=== PATIENT | female | born 1930 | race Caucasian/White ===

== ENCOUNTER 2018-08-17 10:10 | Inpatient (IN) | payer MEDICARE, MEDICAID ==
[~2018-08-17] VITALS: Ht 149.9 cm; Wt 62.1 kg
--- NOTE | 2018-08-17 10:23 | NUR ---
PATIENT TO ED HEADACHE AND HIGH BLOOD PRESSURE. PATIENT RECEIVED AWAKE, DENIES ANY PAIN, SKIN IS WARM TO TOUCH AND NON DIAPHORETIC. PATIENT IS AFEBRILE. VSS. PATIENT NOTED WITH LEFT EYE AND FACIAL DROOP,PER FAMILY BOTH STARTED 2 DAYS AGO. MD AWARE. GOWNED PT AND PLACED ON TELE MONITOR.
--- NOTE | 2018-08-17 10:45 | NUR ---
IV ACCESS STARTED. BLOOD DRAWN FOR LABS.
[2018-08-17] MEDS ORDERED: MECL-138 PO (10:48)
[2018-08-17] MEDS ORDERED: METF-440 PO (10:48)
[2018-08-17] MEDS ORDERED: ASPI-1152 PO (10:48)
[2018-08-17] MEDS ORDERED: RANI150T8 PO (10:48)
[2018-08-17] MEDS ORDERED: CALC500T52 PO (10:48)
[2018-08-17] MEDS ORDERED: ATEN50TA PO (10:48)
[2018-08-17] MEDS ORDERED: CLON0.1T PO (10:48)
[2018-08-17] MEDS ORDERED: OMEP40CA37 PO (10:48)
[2018-08-17] MEDS ORDERED: ESCI10TA PO (10:48)
[2018-08-17] MEDS ORDERED: ERGO500014 PO (10:48)
[2018-08-17] MEDS ORDERED: GLIM1TAB2 PO (10:48)
[2018-08-17] MEDS ORDERED: ATOR10TA PO (10:48)
[2018-08-17] MEDS ORDERED: EZET10TA27 PO (10:48)
[2018-08-17 10:56] LABS: CALCIUM, SERUM 8.9 mg/dL (8.5-10.1); CARBON DIOXIDE 28 mmol/L (21-32); CHLORIDE 103 mmol/L (98-107); CREATININE 0.8 mg/dL (0.6-1.3); GLUCOSE 123 mg/dL (74-106); SODIUM SERUM 137 mmol/L (136-145); UREA NITROGEN, BLOOD 12 mg/dL (7-18)
[2018-08-17 10:57] LABS: INR 0.96 (0.85-1.15)
[2018-08-17 11:04] LABS: ALANINE AMINOTRANSFERASE 14 U/L (12-78); ALBUMIN 3.3 g/dL (3.4-5.0); ALKALINE PHOSPHATASE 89 U/L (46-116); ASPARTATE AMINOTRANSFERASE 17 U/L (15-37); BILIRUBIN,DIRECT 0.1 mg/dL (0.0-0.2); BILIRUBIN,TOTAL 0.4 mg/dL (0.2-1.0); TROPONIN I < 0.017 ng/mL (0.00-0.056)
[2018-08-17 11:11] LABS: WHITE BLOOD COUNT (AUTO) 4.3 K/uL (4.3-11.0)
[2018-08-17 11:12] LABS: BASOPHILS % (AUTO) 0.3 % (0.0-2.0); HEMATOCRIT 41 % (33-45); HEMOGLOBIN 13.6 g/dL (11.5-14.8); LYMPHOCYTES % (AUTO) 30.8 % (20.0-44.0); MEAN CORPUSCULAR HGB CONC 33 g/dl (31.0-36.0); MEAN CORPUSCULAR VOLUME 90 fL (82-100); MONOCYTES % (AUTO) 11.7 % (2.0-12.0); NEUTROPHILS % (AUTO) 57.2 % (43.0-81.0); PLATELET COUNT (AUTO) 198 /CMM (150-450); RDW COEFFICIENT OF VARIATION 14.3 (11.5-15.0); RED BLOOD CELL COUNT(AUTO) 4.55 MIL/uL (4.0-5.2)
[2018-08-17 11:13] LABS: LYMPHOCYTES # (AUTO) 1.3 /CMM (0.8-4.8); MONOCYTES # (AUTO) 0.5 /CMM (0.1-1.30); NEUTROPHILS # (AUTO) 2.4 /CMM (1.8-8.9)
--- NOTE | 2018-08-17 11:33 | NUR ---
CALLED DR PHILLIPS LEFT A VOICEMAIL.
--- NOTE | 2018-08-17 11:45 | NUR ---
PT IS ASSIGNED TO TELE #: [id number], DX: WEAKNESS, AND ACCEPTING MD: DR UNDERWOOD
[2018-08-17] MEDS ORDERED: ASPIRIN 325 MG TABLET PO ONE (12:00)
--- NOTE | 2018-08-17 12:25 | NUR ---
TEXTED DR. GUTIERREZ FOR MRI APPROVAL.
[2018-08-17] MEDS ORDERED: ASPIRIN 325 MG TABLET ONE (12:37)
--- NOTE | 2018-08-17 13:46 | NUR ---
PATIENT TRANSPORTED TO TELE. S
[2018-08-17 13:56] LABS: APPEARANCE,URINE Clear (CLEAR); BILIRUBIN,URINE Negative (NEGATIVE); BLOOD, URINE Trace-intact Ery/uL (NEGATIVE); COLOR,URINE Yellow (YELLOW); KETONES,URINE Negative (NEGATIVE); LEUKOCYTE ESTERASE ,URINE Negative (NEGATIVE); NITRITE, URINE Positive (NEGATIVE); PH,URINE 6.5 (5.0-8.0); PROTEIN,URINE Negative (NEGATIVE); UGLUCOSE Negative (NEGATIVE); UROBILINOGEN,URINE 0.2 EU/dL (0.2)
--- NOTE | 2018-08-17 13:56 | NUR ---
PATIENT TRANSPORTED TO TELE VSS.
[2018-08-17 14:00] VITALS: BP 155/85
--- NOTE | 2018-08-17 14:00 | NUR ---
GREASE REFINING SUPERVISORCOMPUTER APPLICATION DEVELOPER NOTE PT ARRIVED TO TELE UNIT VIA GURNEY IN STABLE CONDITION ACCOMPANIED BY ER STAFF AND FAMILY. PT AMBULATED TO BED WITH ASSISTANCE. PT IS A/O X3, AFEBRILE. RESPIRATIONS ARE EVEN AND UNLABORED, NOT IN ANY ACUTE DISTRESS NOTED. PUPILS ARE REACTIVE TO LIGHT, RIGHT SIDE FACIAL DROOPING AND RIGHT SIDED WEAKNESS. PT DENIES ANY PAIN, SOB, N/V. ABDOMEN IS SOFT AND NONDISTENDED, BOWEL SOUNDS ARE PRESENT IN ALL 4 QUADRANTS UPON AUSCULTATION. DENIES ANY BLADDER DISCOMFORT. PT IS CONTINENT AND ABLE TO AMBULATE TO BATHROOM WITH ASSISTANCE. NO SKIN ISSUES NOTED. IV SITE TO RAC 20G INTACT, NO INFILTRATION NOTED. DRESSING KEPT CLEAN AND DRY. DR. UNDERWOOD MADE AWARE OF ADMISSION WITH ORDERS READ BACK AND VERIFIED, ALL ORDERS NOTED AND CARRIED OUT. SAFETY MEASURES ARE IN PLACE. INSTRUCTED PT TO USE CALL LIGHT WHEN ASSISTANCE IS NEEDED, CALL LIGHT IS LEFT WITHIN REACH. WILL CONTINUE TO MONITOR THROUGHOUT SHIFT FOR CONTINUITY OF CARE.
[2018-08-17 14:02] LABS: BACTERIA,URINE 1+ /HPF (None Seen); RBC,URINE 0-2 /HPF (0-2)
[2018-08-17 14:03] LABS: SQUAMOUS EPITHELIAL CELL,UR Few /HPF (None Seen); YEAST,URINE Few /HPF (None Seen)
[2018-08-17] MEDS ORDERED: MECLIZINE HCL 12.5 MG TABLET PO PRN (17:00)
[2018-08-17] MEDS ORDERED: DEXTROSE 50%-WATER 50 ML DISP.SYRIN IV PRN (17:00)
[2018-08-17] MEDS ORDERED: ACETAMINOPHEN ES 500 MG TABLET PO PRN (17:00)
[2018-08-17] MEDS ORDERED: METFORMIN 500 MG TABLET PO SCH (18:00)
[2018-08-17 18:14] LABS: MAGNESIUM 1.9 mg/dL (1.8-2.4)
[2018-08-17 18:26] LABS: THYROID STIMULATING HORMONE 1.459 uIU/mL (0.358-3.74)
[2018-08-17] MEDS: ATORVASTATIN 10 MG TABLET PO SCH (18:26)
[2018-08-17] MEDS: BLOOD SUGAR DIAGNOSTIC 1 EACH STRIP IN SCH ×2 (18:27→22:05)
--- NOTE | 2018-08-17 18:29 | NUR ---
CADD DRAFTER NOTES BLOOD SUGAR 183. FAMILY REFUSES FOR INSULIN TO BE ADMINISTERED WELL METFORMIN. PER FAMILY, SHE HAS NOT TAKEN ORAL HYPOGLYCEMICS. DR. UNDERWOOD MADE AWARE AT BEDSIDE.
--- NOTE | 2018-08-17 18:40 | NUR ---
MAINFRAME PROGRAMMER ANALYST CLOSING NOTES DUE MEDS GIVEN, NEEDS MET AND ANTICIPATED. PT REMAINS A/O X3-4, AFEBRILE. RESPIRATIONS ARE EVEN AND UNLABORED, NOT IN ANY ACUTE DISTRESS NOTED. DENIES ANY CHEST PAIN, SOB, N/V. PUPILS ARE REACTIVE TO LIGHT, NOTED WITH RIGHT SIDE FACIAL DROOPING AND RIGHT SIDED WEAKNESS. IV SITE INTACT TO RAC, NO INFILTRATION NOTED. DRESSING KEPT CLEAN AND DRY. DR. UNDERWOOD AT BEDSIDE AT THIS TIME, ALONG WITH ECHO BEING DONE. SAFETY MEASURES ARE IN PLACE. REMINDED PT TO USE CALL LIGHT WHEN ASSISTANCE IS NEEDED, CALL LIGHT IS LEFT WITHIN REACH. WILL ENDORSE TO NEXT SHIFT FOR CONTINUITY OF CARE.
[2018-08-17] MEDS ORDERED: IV D5/0.45 NACL 1,000 ML IV PRN (19:30)
--- NOTE | 2018-08-17 19:30 | NUR ---
ASSEMBLY MEMBER NOTES RECEIVED RESTING COMFORTABLY ON BED,BREATHING REGULAR,NOT IN ANY FORM OF DISTRESS,SALINE LOCK LEFT AC INTACT AND PATENT,SPEAK BELARUSIAN ONLY.FAMILY MEMBERS AT BEDSIDE.FALL PRECAUTION OBSERVED.BED ON LOWEST POSITION AND LOCKED.CALL LIGHT IN REACH,NEEDS ANTICIPATED.
--- NOTE | 2018-08-17 19:30 | NUR ---
RETAIL BUSINESS MANAGER NOTES SR WITH BBB,RATE OF 78 ON TELE MONITOR.
--- NOTE | 2018-08-17 19:54 | NUR ---
ERGONOMICS TECHNICIAN NOTES STARTED ON IVF D5 1/2 NS AT 40ML/HR RATE ORDERED.
[2018-08-17 20:00] VITALS: BP 169/92
[2018-08-17] MEDS: ENALAPRIL MALEATE (5 MG) 5 MG TABLET PO SCH (20:29)
[2018-08-17] MEDS: HYDROCHLOROTHIAZIDE 25 MG TABLET PO SCH (20:30)
--- NOTE | 2018-08-17 20:30 | NUR ---
AIRCRAFT TECHNICIAN NOTES STARTED ON HYDRODIURIL 12.5MG AND VASOTEC 5MG PO ORDERED BY DR UNDERWOOD,BP 169/92.
[2018-08-17] MEDS: ATENOLOL 50 MG TABLET PO SCH (21:28)
[2018-08-17] MEDS: CLONIDINE HCL 0.1 MG TABLET PO SCH (21:29)
--- NOTE | 2018-08-17 21:30 | NUR ---
SURETY BOND AGENT NOTES BLOOD PRESSURE RE CHECK 187/116,PULSE-87,DUE CATAPRES 0.1MG AND ATENOLOL 50MG PO GIVEN.WILL RECHECK BP AT 2300.
--- NOTE | 2018-08-17 21:54 | NUR ---
PLANETARIUM SKY SHOW TECHNICIAN NOTES FEELING DIZZY,MECLIZINE 12.5MGPO GIVEN PER PATIENT REQUEST.
[2018-08-17] MEDS: LEVOFLOXACIN (500MG) 500 MG TABLET PO SCH (22:02)
[2018-08-17] MEDS: INSULIN REGULAR, HUMAN 100 UNIT/ML 3 ML VIAL SQ PRN (22:09)
--- NOTE | 2018-08-17 22:15 | NUR ---
ELECTRICAL WIRER NOTES ACCU-CHECK BLOOD SUGAR CHECK 136,REFUSED 2 UNITS HUMULIN PER SLIDING SCALE.
--- NOTE | 2018-08-17 22:36 | NUR ---
ASSOCIATE CREATIVE DIRECTOR NOTES RESTING AT THIS TIME,DAUGHTER AT BEDSIDE.WILL CONTINUE TO MONITOR BLOOD PRESSURE.WILL GIVE REPORT TO CONNIE HURTADO FOR ALLEN.
[2018-08-18] VITALS (12 sets, daily range): BP systolic 123–184; BP diastolic 74–99
[2018-08-18] MEDS: CLONIDINE HCL 0.1 MG TABLET PO SCH (04:50)
[2018-08-18 06:56] LABS: ALANINE AMINOTRANSFERASE 12 U/L (12-78); ALBUMIN 3.4 g/dL (3.4-5.0); ALKALINE PHOSPHATASE 89 U/L (46-116); ASPARTATE AMINOTRANSFERASE 21 U/L (15-37); BILIRUBIN,TOTAL 0.5 mg/dL (0.2-1.0); CARBON DIOXIDE 26 mmol/L (21-32); CHLORIDE 99 mmol/L (98-107); CREATININE 0.8 mg/dL (0.6-1.3); GLUCOSE 115 mg/dL (74-106); POTASSIUM 3.7 mmol/L (3.5-5.1); SODIUM SERUM 136 mmol/L (136-145); TOTAL PROTEIN, SERUM 7.3 g/dL (6.4-8.2); UREA NITROGEN, BLOOD 11 mg/dL (7-18)
[2018-08-18] MEDS: BLOOD SUGAR DIAGNOSTIC 1 EACH STRIP IN SCH ×4 (06:58→21:54)
--- NOTE | 2018-08-18 06:59 | NUR ---
PT BS IS 138. PT REFUSED INSULIN. EDUCATED ABOUT IMPORTANCE TO CONTROL BS LEVEL. PT STILL REFUSING
--- NOTE | 2018-08-18 07:15 | NUR ---
UTILITY PORTER OPENING NOTE RECEIVED PT IN BED, AWAKE AND ALERT, ABLE TO VERBALIZE NEEDS. NO ACUTE DISTRESS NOTED AT THIS TIME. PT IS ON COTTON ACREAGE MEASURER, SINUS RHYTHM W/ BUNDLE BRANCH BLOCK, HR 73. DAUGHTER IS AT THE BEDSIDE. L AC IV #20G IS SALINE LOCKED, PATENT WITHOUT REDNESS OR SWELLING. ALL NEEDS ATTENDED TO, BED IS LOCKED AND IN LOWEST POSITION, SIDE RAILS UP X2, CALL LIGHT IS WITHIN REACH. WILL CONTINUE TO MONITOR.
--- NOTE | 2018-08-18 07:30 | NUR ---
ELEMENTARY SCHOOL COUNSELOR CLOSING NOTES PT RESTING COMFORTABLY ON BED,BREATHING REGULAR,NOT IN ANY FORM OF DISTRESS,S/L LEFT AC INTACT AND PATENT,UPPER SORBIAN SEEKING,DAUGHTER AT BEDSIDE.FALL PRECAUTION IN PLACE.BED ON LOWEST POSITION AND LOCKED.CALL LIGHT IN REACH,NEEDS ANTICIPATED, MEDS ARE GIVEN. LAST BP 156/87. WILL ENDORSE TO NEXT SHIFT FOR ALLEN.
--- NOTE | 2018-08-18 07:45 | NUR ---
JOURNEYMAN WELDER LATE MEDICATION ADMINISTRATION PROTONIX 40MG GIVEN LATE PER DAUGHTER AND PT REQUEST. DAUGHTER STATES THAT PT WAS NOT ABLE TO SLEEP DURING MOST OF THE NIGHT, RISKS AND BENEFITS EXPLAINED, MEDICATION STILL DECLINED.
[2018-08-18 07:59] LABS: HEMATOCRIT 45 % (33-45); HEMOGLOBIN 14.8 g/dL (11.5-14.8); LYMPHOCYTES % (AUTO) 28.4 % (20.0-44.0); MEAN CORPUSCULAR HGB CONC 33 g/dl (31.0-36.0); MEAN CORPUSCULAR VOLUME 90 fL (82-100); NEUTROPHILS % (AUTO) 57.1 % (43.0-81.0); PLATELET COUNT (AUTO) 254 /CMM (150-450); RDW COEFFICIENT OF VARIATION 14.4 (11.5-15.0); RED BLOOD CELL COUNT(AUTO) 4.96 MIL/uL (4.0-5.2); WHITE BLOOD COUNT (AUTO) 6.8 K/uL (4.3-11.0)
[2018-08-18 08:00] LABS: BASOPHILS % (AUTO) 0.3 % (0.0-2.0); LYMPHOCYTES # (AUTO) 1.9 /CMM (0.8-4.8); MONOCYTES % (AUTO) 14.2 % (2.0-12.0); NEUTROPHILS # (AUTO) 3.9 /CMM (1.8-8.9)
[2018-08-18] MEDS: ASPIRIN EC 81 MG TABLET.DR PO SCH (08:41)
[2018-08-18] MEDS: ESCITALOPRAM OXALATE (10 MG) 10 MG TABLET PO SCH (08:42)
[2018-08-18] MEDS: ATENOLOL 50 MG TABLET PO SCH ×2 (08:43→21:53)
[2018-08-18] MEDS: GLIMEPIRIDE 1 MG TABLET PO SCH ×2 (08:44→09:00)
[2018-08-18] MEDS: HYDROCHLOROTHIAZIDE 25 MG TABLET PO SCH (08:44)
[2018-08-18] MEDS: PANTOPRAZOLE 40 MG TABLET.DR PO SCH (08:44)
[2018-08-18] MEDS: EZETIMIBE 10 MG TABLET PO SCH (08:45)
[2018-08-18] MEDS: ENALAPRIL MALEATE (5 MG) 5 MG TABLET PO SCH (09:57)
--- NOTE | 2018-08-18 10:15 | NUR ---
WHARF HAND DR AT THE BEDSIDE DR. LÓPEZ AT THE BEDSIDE TO DISCUSS PLAN OF CARE WITH PT AND DAUGHTER. PER DR. LÓPEZ, DAUGHTER AND PT WOULD LIKE TO GO HOME TODAY, BUT HE IS NOT CLEARING THEM TO LEAVE YET. NEW ORDERS RECEIVED AND INITIATED. WILL CONTINUE TO MONITOR.
[2018-08-18] MEDS ORDERED: CLONIDINE HCL 0.1 MG TABLET PO PRN (10:30)
[2018-08-18] MEDS ORDERED: CLONIDINE HCL 0.1MG/24H PTWK 1 EA PATCH TD SCH (11:00)
--- NOTE | 2018-08-18 11:35 | NUR ---
OPERATIONAL COMMUNICATION CHIEF NOTE DURING BLOOD SUGAR CHECK, DAUGHTER OF PT PULLED OUT A BAG OF HOME MEDICATION AND ASKED THE NURSE TO GIVE "HALF A TAB" OF AMARYL. THE NURSE EXPLAINED TO THE PT THAT WE CANNOT ADMINISTER ANY MEDICATIONS THAT ARE NOT ORDERED AND DISPENSED BY THE HOSPITAL PHARMACY. THE DAUGHTER OF PT DECLINED TO HAVE HOME MEDICATIONS PUT INTO PHARMACY SAFE, STATED "I WANT TO KEEP THEM". THE NURSE EXPLAINED THAT AT NO TIME CAN HOME MEDICATIONS CAN BE KEPT IN THE PT ROOM OR GIVEN TO PT BY THE DAUGHTER OR ANY STAFF. THE DAUGHTER STILL DECLINED TO HAND OVER HOME MEDICATION FOR PHARMACY. RISKS AND DANGERS OF TAKING MEDICATION NOT ORDERED OR EXTRA DOSES EXPLAINED TO PT AND DAUGHTER. DAUGHTER DECLINED A THIRD TIME TO HAVE HOME MEDICATIONS HELD BY PHARMACY. WILL INFORM DR. LÓPEZ AND CONTINUE TO MONITOR PT.
--- NOTE | 2018-08-18 12:16 | NUR ---
PHOTOGRAPHIC ENGINEER NOTE PHOTOGRAPHIC ENGINEER NOTE SPOKE WITH DR. LÓPEZ ON THE PHONE REGARDING PT BLOOD PRESSURE OF 184/99. ORDERS OBTAINED FOR A 1 TIME DOSE OF NORVASC 5MG PO NOW AND FOR NORVASC 5MG PO DAILY STARTING TOMORROW. PLAN OF CARE DISCUSSED WITH PT AND FAMILY AT THE BEDSIDE, PT AND DAUGHTER AGREEABLE. WILL CONTINUE TO MONITOR.
[2018-08-18] MEDS: CLONIDINE HCL 0.1 MG TABLET PO PRN (12:18)
[2018-08-18] MEDS: INSULIN REGULAR, HUMAN 100 UNIT/ML 3 ML VIAL SQ PRN ×3 (12:21→21:56)
[2018-08-18] MEDS ORDERED: AMLODIPINE BESYLATE 5 MG TABLET PO ONE ×2 (12:30→14:00)
--- NOTE | 2018-08-18 12:30 | NUR ---
STRIPPER LATEX NON ADMINISTRATION NOTE PT AND DAUGHTER REFUSED ONE TIME DOSE OF NORVASC 5MG PO ORDERED. DISCUSSED PLAN OF CARE WITH PT AND DAUGHTER, DAUGHTER STATES "SHE DOESN'T NEED IT" EXPLAINED RISKS AND BENEFITS, REMINDED PT THAT SHE HAD AGREED TO PLAN OF CARE 15 MINS PRIOR AND INQUIRED TO WHAT CAUSED CHANGE, DAUGHTER STATED "SHE IS FINE WITHOUT IT" AND MEDICATION STILL REFUSED. CURRENT BP: 123/74, HR 73. WILL CONTINUE TO MONITOR.
--- NOTE | 2018-08-18 13:51 | NUR ---
CONTACT AND SERVICE CLERKS SUPERVISOR NOTE PT BP IS 177/92. HR 78. PT AND DAUGHTER AGREEABLE TO ONE TIME DOSE OF NORVASC [address] LÓPEZ. CALLED PHARMACY TO VERIFY AND ADJUST TIME FRAME. WILL CONTINUE TO MONITOR.
--- NOTE | 2018-08-18 14:00 | NUR ---
BEAM WARPER PHYSICAL THERAPY AT THE BEDSIDE PHYSICAL THERAPY WILL HOLD WORKING WITH PT DUE TO ELEVATED BLOOD PRESSURE. INFORMED PATIENT AND DAUGHTER THAT THEY WILL RESUME PHYSICAL THERAPY TOMORROW PENDING BLOOD PRESSURE RESULTS.
--- NOTE | 2018-08-18 14:24 | NUR ---
MANAGER TRAINEE SPOKE TO DR. LÓPEZ THE NURSE SPOKE TO DR. LÓPEZ TO PROVIDE AN UPDATE ON PT REQUESTED. DISCUSSED PT AND DAUGHTER INITIAL REFUSAL OF ONE TIME DOSE OF NORVASC 5MG PO AT 1230, BP READING OF 177/92 AT 1351, ADMINISTRATION OF NORVASC 5MG PO AT 1407, AND CURRENT BP READING OF 129/77, HR 63. NO NEW ORDERS. WILL CONTINUE TO MONITOR PT.
--- NOTE | 2018-08-18 14:28 | NUR ---
ORDER OBTAINED FROM DR. LÓPEZ. Addendum: 08/18/18 at 1429 by MARIA NEAL RN ERROR, PLEASE DISREGARD.
[2018-08-18] MEDS: ATORVASTATIN 10 MG TABLET PO SCH (17:35)
--- NOTE | 2018-08-18 18:48 | NUR ---
CARPENTER REPAIRER CLOSING NOTE PT SITTING UP IN BED, AWAKE AND ALERT, ABLE TO FOLLOW COMMANDS AND MAKE NEEDS KNOWN. DENIES N/V, CHEST PAIN, SOB, BREATHING IS EVEN AND UNLABORED ON ROOM AIR. NEUROLOGIC STATUS IS AT BASELINE FOR THE DURATION OF THE SHIFT. PT IS ON FIELD MARKETING DIRECTOR, SINUS RHYTHM WITH BUNDLE BRANCH BLOCK, HR 61. R AC #20G IV IS INFUSING D5 1/2 NS @ 40 ML/HR WITHOUT REDNESS OR SWELLING AT THIS TIME. DAUGHTER IS AT THE BEDSIDE. BED IS LOCKED AND IN THE LOWEST POSITION, SIDE RAILS UP X2, CALL LIGHT AND POSSESSIONS ARE WITHIN REACH. WILL ENDORSE TO DOT ETCHER APPRENTICE RN FOR CONTINUITY OF CARE.
--- NOTE | 2018-08-18 19:32 | NUR ---
STRUCTURAL BIOLOGIST OPENING NOTES PT WAS RECEIVED IN BED IN SEMI-FOWLERS POSITION WITH SIDE RAILS UP X2 WITH BED AT THE LOWEST AND LOCKED POSITION, A/O X3, NO S/S OF PAIN OR DISTRESS NOTED, BREATHING IS EVEN AND UNLABORED ON RA, FAMILY IS PRESENT AT THE BEDSIDE, PT IS AMBULATORY WITH ASSIST AND NOTED TO HAVE RIGHT SIDED WEAKNESS WITH SLIGHT FACIAL DROOPING ON THE RIGHT SIDE, PT IS ON TELE MONITOR - SR WITH RATE OF 84, SAFETY PRECAUTIONS IN PLACE, CALL LIGHT WITHIN REACH, AND WILL CONTINUE TO MONITOR.
[2018-08-18] MEDS: LEVOFLOXACIN (500MG) 500 MG TABLET PO SCH (20:54)
--- NOTE | 2018-08-18 21:00 | NUR ---
PT AND DAUGHTER PRESENT AT THE BEDSIDE BOTH REFUSED LEVAQUIN EVEN AFTER TEACHING WAS PROVIDED. FURTHER EDUCATION REQUIRED
[2018-08-19] VITALS: BP 124/82
--- NOTE | 2018-08-19 | NUR ---
PT AND DAUGHTER DO NOT WANT IVF TO INFUSE, CURRENTLY HELD, TEACHING PROVIDED WILL CONTINUE TO MONITOR
[2018-08-19 01:00] VITALS: BP 124/82
[2018-08-19 04:00] VITALS: BP 147/82
[2018-08-19] MEDS: BLOOD SUGAR DIAGNOSTIC 1 EACH STRIP IN SCH ×4 (06:39→22:15)
[2018-08-19] MEDS: INSULIN REGULAR, HUMAN 100 UNIT/ML 3 ML VIAL SQ PRN ×4 (06:42→22:17)
[2018-08-19] MEDS: CLONIDINE HCL 0.1 MG TABLET PO PRN (06:43)
--- NOTE | 2018-08-19 07:01 | NUR ---
CORE MAKER CLOSING NOTES PT WAS IN BED IN SEMI-FOWLERS POSITION WITH SIDE RAILS UP X2 WITH BED AT THE LOWEST AND LOCKED POSITION, A/O X3, NO S/S OF PAIN OR DISTRESS NOTED, BREATHING IS EVEN AND UNLABORED ON 3L NC, FAMILY IS PRESENT AT THE BEDSIDE, PT IS AMBULATORY WITH ASSIST AND NOTED TO HAVE RIGHT SIDED WEAKNESS WITH SLIGHT FACIAL DROOPING ON THE RIGHT SIDE, PT IS ON TELE MONITOR - SR 80S, MOST RECENT BLOOD GLUCOSE WAS 163 WITH 3 UNITS OF INSULIN GIVEN, BP WAS 161/90 SO CLONIDINE WAS GIVEN AT 0640, SAFETY PRECAUTIONS IN PLACE, CALL LIGHT WITHIN REACH, WILL ENDORSE TO DAY SHIFT FOR CONTINUITY OF CARE
--- NOTE | 2018-08-19 07:30 | NUR ---
OUTBOUND SALES ADVISOR NOTES PT IN BED, ASLEEP, RESPIRATIONS NORMAL, NO SIGN OF PAIN OR DISTRESS, NO FACIAL GRIMACING OR MOANING, DAUGHTER AT BEDSIDE, UNABLE TO CHECK VITALS AT THIS TIME, PT REQUESTING TO DO IT LATER BECAUSE PT IS STILL ASLEEP, REMINDED DAUGHTER THAT PT'S BP NEEDS TO BE CHECKED AND THERE ARE MEDICATIONS TO BE GIVEN, VERBALIZED UNDERSTANDING.
[2018-08-19] MEDS: ESCITALOPRAM OXALATE (10 MG) 10 MG TABLET PO SCH (09:00)
[2018-08-19] MEDS: EZETIMIBE 10 MG TABLET PO SCH (09:00)
[2018-08-19] MEDS: ASPIRIN EC 81 MG TABLET.DR PO SCH (09:36)
[2018-08-19] MEDS: PANTOPRAZOLE 40 MG TABLET.DR PO SCH (09:36)
--- NOTE | 2018-08-19 09:40 | NUR ---
RN MS NOTES PT REFUSED ZETIA AND LEXAPRO, PER DAUGHTER, PT DOES NOT TAKE THESE MEDS.
[2018-08-19] MEDS: ATENOLOL 50 MG TABLET PO SCH ×2 (11:42→21:19)
[2018-08-19] MEDS: ENALAPRIL MALEATE (5 MG) 5 MG TABLET PO SCH (11:43)
[2018-08-19] MEDS: AMLODIPINE BESYLATE 5 MG TABLET PO SCH (11:43)
[2018-08-19] MEDS: HYDROCHLOROTHIAZIDE 25 MG TABLET PO SCH (11:43)
--- NOTE | 2018-08-19 12:33 | NUR ---
RN MS NOTES PT IN BED, RESTING, NO COMPLAINT OF PAIN, RESPIATIONS NORMAL, ASSISTED WITH ADL'S, ABLE TO AMBULATE TO THE BATHROOM WITH ASSISTANCE, BLOOD PRESSURE STABLE, NEUROCHECKS DONE ORDERED, NO CHANGES NOTED, WILL CONTINUE TO MONITOR.
[2018-08-19 16:04] VITALS: BP 127/74
[2018-08-19] MEDS: ATORVASTATIN 10 MG TABLET PO SCH (17:42)
--- NOTE | 2018-08-19 18:51 | NUR ---
RN MS NOTES PT IN BED, AWAKE, RESTING, NO COMPLAINT OF PAIN, NEUROCHECKS DONE ORDERED, PT ABLE TO AMBULATE WITH PHYSICAL THERAPIST WITH A WALKER, TOLERATED WELL, ASPIRATION PRECAUTIONS OBSERVED, PM CARE RENDERED, PM MEDS GIVEN ORDERED, ALL NEEDS ATTENDED.
--- NOTE | 2018-08-19 19:20 | NUR ---
RN INITIAL NOTES Patient received resting in bed, family at bedside. Alert, oriented x 3. Iranian speaking, does not understand japanese as per family. Breathing even and unlabored. Not in any distress. Peripheral IV at bedside, not connected. As per AM RN, family refused. On O2 via NC. No complaints as of this time. Patient stable as per AM RN. Safety measures in place. Will continue to monitor accordingly
[2018-08-19 20:00] VITALS: BP 131/76
--- NOTE | 2018-08-19 20:30 | NUR ---
RN NOTES Patient in bed, daughter at bedside. Still refused IV. Neuro check done. Patient able to follow commands
--- NOTE | 2018-08-19 20:50 | NUR ---
GENESIS NOTES Patient picked up by [facility] people, discharged to [facility]. Heplock and arm band taken out. Discharge papers given to [facility] personnel. Addendum: 08/19/18 at 2056 by BRITNEY MENA RN CHARTED ON THE WRONG PATIENT
[2018-08-19] MEDS: LEVOFLOXACIN (500MG) 500 MG TABLET PO SCH (21:00)
--- NOTE | 2018-08-19 21:23 | NUR ---
RN NOTES Patient and daughter at bedside refused levaquin. Explained the risk and benefits of the medication, still refused
--- NOTE | 2018-08-19 22:25 | NUR ---
RN NOTES Patient assisted back to the bed from bathroom. Daughter at bedside. Blood sugar is 135mg/dl, 2 units insulin given as ordered
[2018-08-19 23:54] VITALS: BP 134/82
[2018-08-20 02:20] VITALS: BP 153/72
[2018-08-20] MEDS: CLONIDINE HCL 0.1 MG TABLET PO PRN ×2 (02:26→17:08)
--- NOTE | 2018-08-20 02:26 | NUR ---
RN NOTES Blood pressure rechecked, 153/72mmHg. Clonidine 0.1mg given as ordered
[2018-08-20 04:14] VITALS: BP 130/83
[2018-08-20] MEDS: INSULIN REGULAR, HUMAN 100 UNIT/ML 3 ML VIAL SQ PRN ×3 (06:30→21:51)
[2018-08-20] MEDS: BLOOD SUGAR DIAGNOSTIC 1 EACH STRIP IN SCH ×4 (06:30→21:49)
--- NOTE | 2018-08-20 06:30 | NUR ---
RN NOTES BSL CHECKED, 126MG/DL/ NO INSULIN COVERAGE PER SLIDING SCALE
--- NOTE | 2018-08-20 06:46 | NUR ---
RN CLOSING NOTES Patient in bed, alert, oriented x 3. Daughter at bedside. Patient speaks only albanian. Breathing even and unlabored. Not in any distress. All due medications given as ordered. All needs attended to. Safety measures in place. Call brito within reach. Bed in low, locked position. Will endorse ALLEN to oncoming RN
--- NOTE | 2018-08-20 07:47 | NUR ---
RN OPENING MEDSURG NOTES RECEIVED PATIENT, IN BED, RESTING. A&OX3, ITALIAN SPEAKING, DAUGHTER AT BED SIDE. BREATHING EVEN AND UNLABORED ON O2 3L VIA NC, NO SOB. SKIN SOFT AND WARM TO THE TOUCH. REFUSED IV HYDRATION (D5 1/2 NS) R AC G #20 INTACT AND PATENT. AM CARE RENDERED, NO COMPLAINT OF PAIN OR DISCOMFORT. BED IN LOWEST LOCKED POSITION, CALL LIGHT WITHIN REACH AT ALL TIME, WILL CONTINUE TO MONITOR.
[2018-08-20 08:17] VITALS: BP 124/74
[2018-08-20] MEDS: ASPIRIN EC 81 MG TABLET.DR PO SCH (08:32)
[2018-08-20] MEDS: PANTOPRAZOLE 40 MG TABLET.DR PO SCH (08:32)
[2018-08-20] MEDS: AMLODIPINE BESYLATE 5 MG TABLET PO SCH (08:33)
[2018-08-20] MEDS: HYDROCHLOROTHIAZIDE 25 MG TABLET PO SCH (08:34)
[2018-08-20] MEDS: ATENOLOL 50 MG TABLET PO SCH ×2 (08:34→21:46)
[2018-08-20] MEDS: ENALAPRIL MALEATE (5 MG) 5 MG TABLET PO SCH (08:45)
[2018-08-20] MEDS: ESCITALOPRAM OXALATE (10 MG) 10 MG TABLET PO SCH (08:46)
[2018-08-20] MEDS: EZETIMIBE 10 MG TABLET PO SCH (08:46)
[2018-08-20 16:20] VITALS: BP 135/81
[2018-08-20] MEDS: ATORVASTATIN 10 MG TABLET PO SCH (17:08)
--- NOTE | 2018-08-20 18:19 | NUR ---
BOAT HAND CLOSING NOTES PATIENT REMAINS IN BED, AWAKE ALERT AND ORIENTED X3, WITH DAUGHTER AT BEDSIDE. BREATHING EVEN AND UNLABORED WITH O2 3L AND TOLERATING. NO COMPLAINT OF PAIN OR DISCOMFORT. D5 HELD UPON FAMILY REQUEST, REQUESTED TO CHANGE TO NS, DYNAMICS AX TECHNICAL ARCHITECT INFORMED AWAITING REPLY. SAMPLE COLLECTED FOR URINE CULTURE AWAITING RESULTS. BED IN LOWEST LOCKED POSITION, CALL LIGHT WITHIN REACH AT ALL TIMES, WILL ENDORSE TO NIGHT NURSE FOR ALLEN
--- NOTE | 2018-08-20 19:10 | NUR ---
RN INITIAL NOTES Patient received in bed, alert, oriented x 3. Family at bedside. Breathing even and unlabored with O2 at 3LPM via NC. No complaints of discomfort as of this time. Call brito within reach. Bed in low, locked position. Patient stable as endorsed by the morning RN. Will continue to monitor accordingly
[2018-08-20 20:00] VITALS: BP 115/76
--- NOTE | 2018-08-20 20:30 | NUR ---
RN NOTES Patient's family requesting for IV fluids as patient is not drinking enough, but is refusing the D5 1/2 NS ordered. As per family, "we don't want the patient's blood sugar to go up, plain water is ok." Relayed message to FELI Duran. Telephone order of NS at 40mL/hr. Carried out"
[2018-08-20] MEDS ORDERED: IV NS 0.9% 1,000 ML BAG IV PRN ×2 (21:00)
[2018-08-20] MEDS ORDERED: IV NS 0.9% 1,000 ML IV PRN (21:00)
[2018-08-20] MEDS: LEVOFLOXACIN (500MG) 500 MG TABLET PO SCH (21:00)
[2018-08-20 21:46] VITALS: BP 125/81
--- NOTE | 2018-08-20 21:51 | NUR ---
RN NOTES BSL checked- 177mg/dl. 3 unit insulin given as per sliding scale
--- NOTE | 2018-08-20 22:05 | NUR ---
RN NOTES Dr. Velásquez currently at patient's bedside. Ordered for the IVF to be changed to D5 0.9 NS to run at 80mL/Hr. Ordered also for CBC, BMP and Magnesium to be drawn in the morning. Orders carried out
[2018-08-20] MEDS ORDERED: IV D5/ 0.9% NACL 1,000 ML IV PRN (22:30)
[2018-08-21] VITALS (7 sets, daily range): BP systolic 105–160; BP diastolic 56–83
[2018-08-21] MEDS: CLONIDINE HCL 0.1 MG TABLET PO PRN (04:22)
--- NOTE | 2018-08-21 04:22 | NUR ---
RN NOTES Blood pressure checked, 160/83. clonidine PRN given as ordered
--- NOTE | 2018-08-21 05:30 | NUR ---
RN NOTES Patient's daughter requested to turn off the IVF. As per daughter, blood sugar and blood pressure goes up with IVF on
[2018-08-21] MEDS: INSULIN REGULAR, HUMAN 100 UNIT/ML 3 ML VIAL SQ PRN ×4 (06:39→21:53)
[2018-08-21] MEDS: BLOOD SUGAR DIAGNOSTIC 1 EACH STRIP IN SCH ×4 (06:39→21:53)
--- NOTE | 2018-08-21 06:40 | NUR ---
RN NOTES BSL checked- 152mg/dl. 2 units of insulin given as per sliding scale
[2018-08-21 06:45] LABS: BASOPHILS % (AUTO) 0.1 % (0.0-2.0); HEMATOCRIT 43 % (33-45); HEMOGLOBIN 14.2 g/dL (11.5-14.8); LYMPHOCYTES # (AUTO) 1.7 /CMM (0.8-4.8); LYMPHOCYTES % (AUTO) 22.8 % (20.0-44.0); MEAN CORPUSCULAR HGB CONC 33 g/dl (31.0-36.0); MEAN CORPUSCULAR VOLUME 91 fL (82-100); MONOCYTES # (AUTO) 1.1 /CMM (0.1-1.30); MONOCYTES % (AUTO) 14.2 % (2.0-12.0); NEUTROPHILS # (AUTO) 4.8 /CMM (1.8-8.9); NEUTROPHILS % (AUTO) 62.9 % (43.0-81.0); PLATELET COUNT (AUTO) 306 /CMM (150-450); RDW COEFFICIENT OF VARIATION 14.1 (11.5-15.0); RED BLOOD CELL COUNT(AUTO) 4.73 MIL/uL (4.0-5.2); WHITE BLOOD COUNT (AUTO) 7.6 K/uL (4.3-11.0)
[2018-08-21 07:01] LABS: CALCIUM, SERUM 8.5 mg/dL (8.5-10.1); CARBON DIOXIDE 27 mmol/L (21-32); CHLORIDE 96 mmol/L (98-107); CREATININE 0.8 mg/dL (0.6-1.3); GLUCOSE 156 mg/dL (74-106); MAGNESIUM 1.8 mg/dL (1.8-2.4); SODIUM SERUM 133 mmol/L (136-145); UREA NITROGEN, BLOOD 25 mg/dL (7-18)
--- NOTE | 2018-08-21 07:25 | NUR ---
RN NOTES Patient in bed, still sleeping, daughter at bedside. Breathing even and unlabored. Not in apparent distress. No complaints as of this time. All needs attended to. All due medications given as ordered. Endorsed ALLEN to oncoming RN.
[2018-08-21] MEDS: PANTOPRAZOLE 40 MG TABLET.DR PO SCH (08:56)
[2018-08-21] MEDS: ASPIRIN EC 81 MG TABLET.DR PO SCH (08:56)
[2018-08-21] MEDS: ATENOLOL 50 MG TABLET PO SCH (08:57)
[2018-08-21] MEDS: HYDROCHLOROTHIAZIDE 25 MG TABLET PO SCH (08:58)
[2018-08-21] MEDS: ESCITALOPRAM OXALATE (10 MG) 10 MG TABLET PO SCH (08:59)
[2018-08-21] MEDS: AMLODIPINE BESYLATE 5 MG TABLET PO SCH (09:00)
[2018-08-21] MEDS: EZETIMIBE 10 MG TABLET PO SCH (09:00)
[2018-08-21] MEDS: ENALAPRIL MALEATE (5 MG) 5 MG TABLET PO SCH (09:00)
[2018-08-21] MEDS ORDERED: POTASSIUM CHLORIDE 20 MEQ TAB.PRT.SR PO ONE (09:30)
[2018-08-21] MEDS: CARVEDILOL 12.5 MG TABLET PO SCH ×2 (10:00→21:00)
[2018-08-21] MEDS: LISINOPRIL (10MG) 10 MG TABLET PO SCH ×3 (10:00→21:52)
[2018-08-21] MEDS: POTASSIUM CHLORIDE 20 MEQ TAB.PRT.SR PO SCH ×2 (10:00→17:12)
--- NOTE | 2018-08-21 10:00 | NUR ---
RN NOTES PATIENT FELT NAUSEAS AFTER TAKING POTASSIUM TABLET DAUGHTER REQUESTED SECOND DOSE TO BE ADMINISTERED LATER ON IN THE DAY. MD AWARE.
[2018-08-21] MEDS: Magnesium 1GM/D5W 100ML PREMIX 100 ML IV SCH ×2 (10:02→10:30)
[2018-08-21] MEDS: Potassium Chloride 10 MEQ in IV NS 0.9% 1,000 ML IV PRN (12:34)
[2018-08-21] MEDS: ATORVASTATIN 10 MG TABLET PO SCH (17:12)
--- NOTE | 2018-08-21 18:26 | NUR ---
RN NOTES PATIENT IN BED RESTING NO SOB OR ACUTE DISTRESS NOTED. ALL DUE MEDICATIONS ADMINISTERED. ALL NEEDS MET WILL ENDORSE TO PM SHIFT ALLEN.
--- NOTE | 2018-08-21 19:10 | NUR ---
MS/RN NOTES RECEIVED PT. LYING IN BED. PT. IS AWAKE, ALERT AND ORIENTED X3. BREATHING EVEN AND UNLABORED ON 3LPM O2 VIA NC. NO SOB, RESPIRATORY DISTRESS OR COMPLAINTS OF PAIN NOTED AT THIS TIME. PT. WITH RIGHT FOREARM 22 GAUGE PERIPHERAL IV PRESENT, PATENT AND INTACT ADMINISTERING TO PT. NS WITH 10 MEQ KCL @ 60 ML/HR. PT. WITH FAMILY PRESENT AT BEDSIDE. NEURO-CHECK PERFORMED. BED LOCKED AND IN LOWEST POSITION, SIDE RAILS UP X2, BED ALARM ON, CALL LIGHT WITHIN REACH, WILL CONTINUE TO MONITOR.
[2018-08-21] MEDS: LEVOFLOXACIN (500MG) 500 MG TABLET PO SCH (21:00)
[2018-08-22] MEDS: Potassium Chloride 10 MEQ in IV NS 0.9% 1,000 ML IV PRN (06:01)
--- NOTE | 2018-08-22 06:10 | NUR ---
MS/RN NOTES PT. IS LYING IN BED RESTING. BREATHING EVEN AND UNLABORED ON 3LPM O2 VIA NC. NO SOB, RESPIRATORY DISTRESS OR COMPLAINTS OF PAIN NOTED AT THIS TIME AND THROUGHOUT SHIFT. PT. WITH RIGHT FOREARM 22 GAUGE PERIPHERAL IV PRESENT, PATENT AND INTACT ADMINISTERING TO PT. NS WITH 10 MEQ KCL @ 60 ML/HR. FREQUENT NEURO-CHECKS PERFORMED THROUGHOUT SHIFT. ALL PT. NEEDS MET. PT. DAUGHTER PRESENT AT BEDSIDE. BED LOCKED AND IN LOWEST POSITION, SIDE RAILS UP X2, BED ALARM ON, CALL LIGHT WITHIN REACH, WILL ENDORSE TO DAYSHIFT NURSE FOR CONTINUITY OF CARE.
[2018-08-22 06:18] LABS: BASOPHILS % (AUTO) 0.3 % (0.0-2.0); HEMATOCRIT 42 % (33-45); HEMOGLOBIN 13.9 g/dL (11.5-14.8); LYMPHOCYTES # (AUTO) 2.3 /CMM (0.8-4.8); LYMPHOCYTES % (AUTO) 28.7 % (20.0-44.0); MEAN CORPUSCULAR HGB CONC 33 g/dl (31.0-36.0); MEAN CORPUSCULAR VOLUME 90 fL (82-100); MONOCYTES # (AUTO) 1.1 /CMM (0.1-1.30); MONOCYTES % (AUTO) 13.6 % (2.0-12.0); NEUTROPHILS # (AUTO) 4.6 /CMM (1.8-8.9); NEUTROPHILS % (AUTO) 57.4 % (43.0-81.0); PLATELET COUNT (AUTO) 297 /CMM (150-450); RDW COEFFICIENT OF VARIATION 14.2 (11.5-15.0); RED BLOOD CELL COUNT(AUTO) 4.68 MIL/uL (4.0-5.2); WHITE BLOOD COUNT (AUTO) 8.1 K/uL (4.3-11.0)
[2018-08-22 06:44] LABS: ALANINE AMINOTRANSFERASE 41 U/L (12-78); ALKALINE PHOSPHATASE 83 U/L (46-116); ASPARTATE AMINOTRANSFERASE 35 U/L (15-37); CALCIUM, SERUM 8.4 mg/dL (8.5-10.1); CARBON DIOXIDE 27 mmol/L (21-32); CHLORIDE 98 mmol/L (98-107); CREATININE 0.8 mg/dL (0.6-1.3); GLUCOSE 120 mg/dL (74-106); PHOSPHORUS 2.7 mg/dL (2.5-4.9); POTASSIUM 3.7 mmol/L (3.5-5.1); SODIUM SERUM 132 mmol/L (136-145); TOTAL PROTEIN, SERUM 6.6 g/dL (6.4-8.2); UREA NITROGEN, BLOOD 20 mg/dL (7-18)
[2018-08-22] MEDS: BLOOD SUGAR DIAGNOSTIC 1 EACH STRIP IN SCH ×3 (06:52→17:30)
[2018-08-22 08:00] VITALS: BP 146/85
--- NOTE | 2018-08-22 08:00 | NUR ---
RN NOTES PATIENT IN BED RESTING NO SOB OR ACUTE DISTRESS NOTED. PATIENT ALERT, ORIENTED X3. DENIES ANY PAIN. DAUGHTER AT BEDSIDE. BED IN LOW LOCKED POSITION CALL LIGHT WITHIN REACH. WILL CONTINUE TO MONITOR.
[2018-08-22] MEDS: ASPIRIN EC 81 MG TABLET.DR PO SCH (08:25)
[2018-08-22] MEDS: PANTOPRAZOLE 40 MG TABLET.DR PO SCH (08:25)
[2018-08-22] MEDS: LISINOPRIL (10MG) 10 MG TABLET PO SCH (08:26)
[2018-08-22] MEDS: CARVEDILOL 12.5 MG TABLET PO SCH (08:26)
[2018-08-22] MEDS: ESCITALOPRAM OXALATE (10 MG) 10 MG TABLET PO SCH (08:27)
[2018-08-22] MEDS: AMLODIPINE BESYLATE 5 MG TABLET PO SCH (08:27)
[2018-08-22] MEDS: HYDROCHLOROTHIAZIDE 25 MG TABLET PO SCH (08:27)
[2018-08-22] MEDS: EZETIMIBE 10 MG TABLET PO SCH (08:30)
[2018-08-22] MEDS: DOCUSATE SODIUM 100 MG CAPSULE PO SCH ×2 (10:25→16:18)
--- NOTE | 2018-08-22 11:00 | NUR ---
RN NOTES PATIENT SEEN AND EVALUATED BY DR NUNEZ ORDERS NOTED AND CARRIED OUT.
[2018-08-22] MEDS: INSULIN REGULAR, HUMAN 100 UNIT/ML 3 ML VIAL SQ PRN (11:39)
[2018-08-22 16:00] VITALS: BP 170/89
--- NOTE | 2018-08-22 16:00 | NUR ---
RN NOTES CASE MANGER SPOKE TO PATIENT AND PATIENTS DAUGHTER INFORMED THEM DR. NUNEZ INSISTS ON DISCHARGE TO [facility]. PATIENT AND DAUGHTER REFUSE TO BE DISCHARGED TO ARU REQUEST TO BE DISCHARGED TO HOME. DR. NUNEZ MADE AWARE STATES PATIENT NEEDS TO LEAVE AMA IF DOES NOT AGREE TO GO TO ARU. PATIENT AND DAUGHTER AGREE TO LEAVE AMA. DR. NUNEZ ORDERED TO CALL NEW PRESCRIPTIONS TO PHARMACY OF PATIENTS CHOICE AND TO ARRANGE HOME HEALTH [facility] MECHANIC ARRANGING HOME HEALTH.
[2018-08-22 16:19] VITALS: BP 170/89
[2018-08-22] MEDS: CLONIDINE HCL 0.1 MG TABLET PO PRN (16:19)
--- NOTE | 2018-08-22 17:00 | NUR ---
RN NOTES PATIENT PROVIDED WITH WALKER FOR HOME. PATIENT AND DAUGHTER VERBALIZED UNDERSTANDING OF LEAVING AMA AND CHOOSING NOT TO BE DISCHARGED TO ARU DESPITE EXPLANATION OF RISKS AND BENEFITS. PATIENTS DAUGHTER STATES SHE WILL CARE FOR PATIENT 24 HOURS A DAY ALSO WILL HAVE HELP FROM HOME HEALTH.
[2018-08-22] MEDS: ATORVASTATIN 10 MG TABLET PO SCH (18:00)
--- NOTE | 2018-08-22 18:00 | NUR ---
CONFIRMED WITH [facility].
--- NOTE | 2018-08-22 18:00 | NUR ---
MS RN NOTES PATIENT DISCHARGED HOME WITH FAMILY. IN STABLE CONDITION. PATIENT VERBALIZED UNDERSTANDING OF RISKS AND BENEFITS OF LEAVING AGAINS MEDICAL ADVISE. PERIPHERAL IV REMOVED WITH MINIMAL BLEEDING. ID BAND REMOVED. PATIENT ESCORTED TO CAR WITH WHEELCHAIR.
[2018-08-22] MEDS ORDERED: LISINOPRIL (20MG) 20 MG TABLET PO SCH (21:00)
== END 2018-08-22 18:30 | disposition left against medical advice (07) | DRG 65 ==
LOC: ER 10:11 → TELE 11:53 → MED 08-19 08:48
PROVIDERS: ADMIT Family Medicine; ATTEND Family Medicine
DX: I63.9 Cerebral infarction, unspecified (principal); E87.1 Hypo-osmolality and hyponatremia; G81.91 Hemiplegia, unspecified affecting right dominant side; R47.01 Aphasia; K57.10 Diverticulosis of small intestine without perforation or abscess without bleeding; E78.5 Hyperlipidemia, unspecified; M81.0 Age-related osteoporosis without current pathological fracture; I10 Essential (primary) hypertension; I83.93 Asymptomatic varicose veins of bilateral lower extremities; M19.90 Unspecified osteoarthritis, unspecified site; R00.2 Palpitations; G30.9 Alzheimer's disease, unspecified; Z90.710 Acquired absence of both cervix and uterus; Z90.49 Acquired absence of other specified parts of digestive tract; K21.9 Gastro-esophageal reflux disease without esophagitis; E78.00 Pure hypercholesterolemia, unspecified; E87.6 Hypokalemia; F43.10 Post-traumatic stress disorder, unspecified; F41.9 Anxiety disorder, unspecified; F41.0 Panic disorder [episodic paroxysmal anxiety]; H02.401 Unspecified ptosis of right eyelid; R13.10 Dysphagia, unspecified; I25.10 Atherosclerotic heart disease of native coronary artery without angina pectoris; K59.00 Constipation, unspecified; M40.209 Unspecified kyphosis, site unspecified; R32 Unspecified urinary incontinence; R56.9 Unspecified convulsions; Z86.73 Personal history of transient ischemic attack (TIA), and cerebral infarction without residual deficits; W18.30XA Fall on same level, unspecified, initial encounter; Y92.099 Unspecified place in other non-institutional residence as the place of occurrence of the external cause; I27.20 Pulmonary hypertension, unspecified; G43.909 Migraine, unspecified, not intractable, without status migrainosus; E11.42 Type 2 diabetes mellitus with diabetic polyneuropathy; I11.0 Hypertensive heart disease with heart failure; I50.9 Heart failure, unspecified; Z82.49 Family history of ischemic heart disease and other diseases of the circulatory system; Z79.84 Long term (current) use of oral hypoglycemic drugs; F09 Unspecified mental disorder due to known physiological condition
CPT/HCPCS: 36415; 70450-TC; 70551-TC; 71045-TC; 80048-TC; 80053-TC; 80061-TC; 80076-TC; 81000-TC; 82962-TC; 83540-TC; 83735-TC; 84100-TC; 84443-TC; 84484-TC; 85025-TC; 85378-TC; 85730-TC; 87081-TC; 87086-TC; 92611-TC; 93307-TC; 93880-TC; 95819-TC; 97112-TC; 97116-TC; 97530-TC; A4606; J1815; J3475; J3480; J3490; J7030; J7042; J8597; Z7610

== ENCOUNTER 2018-11-20 23:00 | Inpatient (IN) | payer MEDICARE, MEDICAID ==
[~2018-11-20] VITALS: Ht 152.4 cm; Wt 54.4 kg
[~2018-11-20 23:00] MED LIST: ASPI-1152 PO; ATEN50TA PO; ATOR10TA PO; CALC500T52 PO; CLON0.1T PO; ERGO500014 PO; ESCI10TA PO; EZET10TA27 PO; GLIM1TAB2 PO; MECL-138 PO; METF-440 PO; OMEP40CA37 PO; RANI150T8 PO
--- NOTE | 2018-11-20 23:10 | NUR ---
BIBRA 102 FOR WEAKNESS X 3 DAYS PER DAUGHTER. PT TRANSFERED TO BED AND TOLERATED WELL. PT PLACED ON MONITOR WITH VS WNL. PT PLACED ON O2 VIA NC @ 4LPM WITH O2 SAT @ 94%. PT PLACED IN A COMFORTABLE POSITION. FAMILY AT BEDSIDE. AWAITING MD POON.
--- NOTE | 2018-11-20 23:30 | NUR ---
PLACED RIGHT HAND 22G IV. GOOD BLOOD RETURN AND EASILY FLUSH. LAB AT BEDSIDE.
[2018-11-20] MEDS ORDERED: IV NS 0.9% 1,000 ML IV ONE (23:39)
[2018-11-20] MEDS ORDERED: ONDANSETRON HCL/PF 4 MG/2 ML VIAL ONE (23:55)
[2018-11-20] MEDS ORDERED: HYDROMORPHONE 1 MG/1 ML DISP.SYRIN ONE (23:55)
[2018-11-21] VITALS (35 sets, daily range): BP systolic 67–174; BP diastolic 18–109
[2018-11-21] MEDS ORDERED: HYDROMORPHONE INJ 2 MG/ML DISP.SYRIN IV ONE
[2018-11-21] MEDS ORDERED: ONDANSETRON HCL/PF 4 MG/2 ML VIAL IVP ONE
--- NOTE | 2018-11-21 | NUR ---
US TECH FOR GALLBLADDER ARRIVED, BUT WAS NOTIFIED BY FAMILY THAT PT DOES NOT HAVE A GALLBLADDER. NOTIFIED DR MURDOCK. US TECH LEFT.
[2018-11-21 00:24] LABS: BASOPHILS % (AUTO) 0.3 % (0.0-2.0); HEMATOCRIT 40 % (33-45); HEMOGLOBIN 13.7 g/dL (11.5-14.8); LYMPHOCYTES # (AUTO) 1.6 /CMM (0.8-4.8); LYMPHOCYTES % (AUTO) 21.2 % (20.0-44.0); MEAN CORPUSCULAR HGB CONC 34 g/dl (31.0-36.0); MEAN CORPUSCULAR VOLUME 90 fL (82-100); MONOCYTES # (AUTO) 0.8 /CMM (0.1-1.30); MONOCYTES % (AUTO) 10.4 % (2.0-12.0); NEUTROPHILS # (AUTO) 5.2 /CMM (1.8-8.9); NEUTROPHILS % (AUTO) 68.1 % (43.0-81.0); PLATELET COUNT (AUTO) 335 /CMM (150-450); RED BLOOD CELL COUNT(AUTO) 4.43 MIL/uL (4.0-5.2); WHITE BLOOD COUNT (AUTO) 7.7 K/uL (4.3-11.0)
[2018-11-21 00:39] LABS: ALANINE AMINOTRANSFERASE 18 U/L (12-78); ALBUMIN 2.9 g/dL (3.4-5.0); ALKALINE PHOSPHATASE 82 U/L (46-116); ASPARTATE AMINOTRANSFERASE 23 U/L (15-37); BILIRUBIN,DIRECT 0.2 mg/dL (0.0-0.2); BILIRUBIN,TOTAL 0.5 mg/dL (0.2-1.0); CALCIUM, SERUM 8.9 mg/dL (8.5-10.1); CARBON DIOXIDE 25 mmol/L (21-32); CHLORIDE 85 mmol/L (98-107); CREATININE 0.5 mg/dL (0.6-1.3); GLUCOSE 113 mg/dL (74-106); LIPASE 66 U/L (73-393); POTASSIUM 3.3 mmol/L (3.5-5.1); TOTAL PROTEIN, SERUM 6.5 g/dL (6.4-8.2); UREA NITROGEN, BLOOD 14 mg/dL (7-18)
[2018-11-21 00:43] LABS: SODIUM SERUM 120 mmol/L (136-145)
[2018-11-21] MEDS ORDERED: IV NS 0.9% 1,000 ML IV PRN (01:49)
--- NOTE | 2018-11-21 01:53 | NUR ---
NOTIFIED THAT PT WILL BE ADMITTED TO HOSPITAL, BUT WAS TOLD BY COMPUTER TRAINER THAT THERE ARE NO BEDS AVAILABLE AND PT WILL HAVE TO STAY IN ER. WILL CONTINUE TO MONITOR PT UNTIL BED BECOMES AVAILABLE. NOTIFIED.
[2018-11-21] MEDS ORDERED: MAGNESIUM HYDROXIDE 30 ML UDC PO PRN (02:00)
[2018-11-21] MEDS ORDERED: ONDANSETRON HCL/PF 4 MG/2 ML VIAL IVP PRN (02:00)
[2018-11-21] MEDS ORDERED: ACETAMINOPHEN 325 MG TABLET PO PRN (02:00)
[2018-11-21] MEDS ORDERED: Z GUARD REMEDY 2 OZ OINT TP PRN (02:00)
[2018-11-21] MEDS ORDERED: HYDROCODONE/APAP 5/325MG 1 EACH TABLET PO PRN (02:00)
[2018-11-21] MEDS ORDERED: MAG HYDROX/AL HYDROX/SIMETH 30 ML UDC PO PRN (02:00)
[2018-11-21] MEDS ORDERED: ZOLPIDEM TARTRATE 5 MG TABLET PO PRN (02:00)
--- NOTE | 2018-11-21 02:00 | NUR ---
PT LEFT TO CT.
--- NOTE | 2018-11-21 02:24 | NUR ---
PT RETURNED FROM CT.
[2018-11-21] MEDS ORDERED: MORPHINE SULFATE INJ 2 MG/ML DISP.SYRIN IV ONE (07:30)
[2018-11-21] MEDS ORDERED: HYDROMORPHONE 1 MG/1 ML DISP.SYRIN ONE (07:38)
--- NOTE | 2018-11-21 07:51 | NUR ---
RECEIVED REPORT FROM GENESIS OROZCO FOR ALLEN.
--- NOTE | 2018-11-21 07:55 | NUR ---
REPORT GIVEN TO REESE RAGSDALE RN FOR CONTINUITY OF CARE.
[2018-11-21] MEDS ORDERED: HYDROMORPHONE INJ 0.5 MG/0.5 ML SYRINGE IV ONE (08:00)
[2018-11-21 08:06] LABS: APPEARANCE,URINE CLOUDY (CLEAR); BILIRUBIN,URINE NEGATIVE (NEGATIVE); BLOOD, URINE NEGATIVE Ery/uL (NEGATIVE); COLOR,URINE YELLOW (YELLOW); KETONES,URINE TRACE (NEGATIVE); LEUKOCYTE ESTERASE ,URINE TRACE (NEGATIVE); NITRITE, URINE POSITIVE (NEGATIVE); PH,URINE 6.5 (5.0-8.0); PROTEIN,URINE NEGATIVE (NEGATIVE); UGLUCOSE NEGATIVE (NEGATIVE)
--- NOTE | 2018-11-21 08:08 | NUR ---
REPORT GIVEN TO GENESIS BORRERO FOR ALLEN.
[2018-11-21 08:18] LABS: BACTERIA,URINE Many /HPF (None Seen); SQUAMOUS EPITHELIAL CELL,UR Few /HPF (None Seen)
[2018-11-21 08:21] LABS: RBC,URINE 0-2 /HPF (0-2)
[2018-11-21 08:22] LABS: BASOPHILS % (AUTO) 0.1 % (0.0-2.0); HEMATOCRIT 41 % (33-45); HEMOGLOBIN 13.8 g/dL (11.5-14.8); LYMPHOCYTES # (AUTO) 3.4 /CMM (0.8-4.8); LYMPHOCYTES % (AUTO) 30.3 % (20.0-44.0); MEAN CORPUSCULAR HGB CONC 34 g/dl (31.0-36.0); MEAN CORPUSCULAR VOLUME 92 fL (82-100); MONOCYTES # (AUTO) 1.5 /CMM (0.1-1.30); MONOCYTES % (AUTO) 13.2 % (2.0-12.0); NEUTROPHILS # (AUTO) 6.3 /CMM (1.8-8.9); NEUTROPHILS % (AUTO) 56.4 % (43.0-81.0); PLATELET COUNT (AUTO) 374 /CMM (150-450); RED BLOOD CELL COUNT(AUTO) 4.44 MIL/uL (4.0-5.2); WHITE BLOOD COUNT (AUTO) 11.1 K/uL (4.3-11.0)
--- NOTE | 2018-11-21 08:27 | NUR ---
IV NS INFUSING TO FLOOR AT 75ML/HR.
[2018-11-21 08:40] LABS: ALANINE AMINOTRANSFERASE 20 U/L (12-78); ALBUMIN 2.8 g/dL (3.4-5.0); ALKALINE PHOSPHATASE 77 U/L (46-116); ASPARTATE AMINOTRANSFERASE 26 U/L (15-37); BILIRUBIN,TOTAL 0.6 mg/dL (0.2-1.0); CALCIUM, SERUM 8.4 mg/dL (8.5-10.1); CARBON DIOXIDE 27 mmol/L (21-32); CHLORIDE 88 mmol/L (98-107); CREATININE 0.5 mg/dL (0.6-1.3); GLUCOSE 106 mg/dL (74-106); MAGNESIUM 1.8 mg/dL (1.8-2.4); PHOSPHORUS 3.6 mg/dL (2.5-4.9); POTASSIUM 3.9 mmol/L (3.5-5.1); SODIUM SERUM 121 mmol/L (136-145); TOTAL PROTEIN, SERUM 6.4 g/dL (6.4-8.2); UREA NITROGEN, BLOOD 14 mg/dL (7-18)
--- NOTE | 2018-11-21 08:45 | NUR ---
GEOTHERMAL HEAT PUMP MACHINISTCHILD HEALTH ASSOCIATE NOTE RECEIVED PATIENT FROM ER ,PATIENT IS NOT RESPONSIVE.ON O2 2L VIA MASK.SATURATING 99%.NOTED WITH SHALLOW DEEP RESPIRATION,PALE SKIN COLOR.FAMILY AT BEDSIDE ABLE TO PROVIDE INFORMATIONS,TOLD THAT SHE WAS RESPONSIVE IN THE MORNING AT 6 AFTER PAIN MEDICATION SHE IS SLEEPING.ADMITTED WITH PRIMARY DIAGNOSIS OF HYPONATREMIA.PLACED STAT ABG ORDER.PUPILS CONSTRICTED ,PIN POINT NOT RESPONDING TO LIGHT.NO PUPILLARY REACTION.SEEN BY GOT NEW ORDER FOR NARCAN. FAMILY NOT SURE ABOUT CODE STATUS ABOUT INTUBATION,WAITING FOR HER DAUGHTER.FULL CODE UNTIL FAMILY DECIDE CODE STATUS. MADE AWARE.
[2018-11-21 09:17] LABS: ABG OXYGEN SATURATION 99.2 % (92.0-98.5); ABG PCO2 101.5 mmHg (35.0-45.0); ABG PH 7.099 (7.350-7.450); ABG PO2 328.4 mmHg (75.0-100.0); AaDO2 283.1 mmHg; COHb 1.1 % (0.5-1.5); MetHb 0.8 % (0.0-1.5); O2Hb 97.3 % (94.0-97.0); SITE, ABG Right Radial; VENT MODE, BG NON-REBREATHER
[2018-11-21] MEDS ORDERED: IV Sodium Chloride 3% 500 ML 500 ML IV SCH (09:30)
[2018-11-21] MEDS ORDERED: NALOXONE HCL 0.4 MG/ML AMPUL IV PRN (09:30)
--- NOTE | 2018-11-21 10:00 | NUR ---
FILM EDITORSENIOR ANALYST PROGRAMMER NOTE NARCAN GIVEN ,STILL NOT RESPONDING.ABG RESULT POSITIVE FOR RESPIRATORY ACIDOSIS. MADE AWARE.GOT ORDER FOR BIPAP.RT AWARE.FAMILY MADE AWARE.FAMILY AT BEDSIDE.STILL DECISDING ABOUT CODE STTUS,.GOT ORDER TO TRANSFER TO ICU.ROOM 253.REPORT GIVEN TO NURSE SUTTON FOR ALLEN.
[2018-11-21] MEDS: CEFTRIAXONE 1 G in IV D5W 50 ML IV SCH (10:35)
[2018-11-21 11:02] LABS: CALCIUM, SERUM 8.6 mg/dL (8.5-10.1); CARBON DIOXIDE 27 mmol/L (21-32); CHLORIDE 90 mmol/L (98-107); CREATININE 0.7 mg/dL (0.6-1.3); GLUCOSE 137 mg/dL (74-106); POTASSIUM 3.9 mmol/L (3.5-5.1); SODIUM SERUM 124 mmol/L (136-145); UREA NITROGEN, BLOOD 14 mg/dL (7-18)
[2018-11-21 11:03] LABS: MAGNESIUM 1.9 mg/dL (1.8-2.4); PHOSPHORUS 4.1 mg/dL (2.5-4.9)
[2018-11-21] MEDS: AZITHROMYCIN 500 MG in IV D5W 250 ML IV SCH (11:10)
[2018-11-21 11:11] LABS: THYROID STIMULATING HORMONE 2.236 uIU/mL (0.358-3.74); URIC ACID 3.3 mg/dL (2.6-7.2)
[2018-11-21 11:40] LABS: ABG BASE EXCESS 0.2 mmol/L; ABG OXYGEN SATURATION 98.1 % (92.0-98.5); ABG PCO2 49.4 mmHg (35.0-45.0); ABG PH 7.347 (7.350-7.450); ABG PO2 129.2 mmHg (75.0-100.0); AaDO2 99.2 mmHg; COHb 0.5 % (0.5-1.5); MetHb 0.5 % (0.0-1.5); O2Hb 97.1 % (94.0-97.0); PEEP,BG 5 cm H2O; SITE, ABG Right Radial
--- NOTE | 2018-11-21 13:16 | NUR ---
PATIENT REMOVED FROM BIPAP A TRIAL TO VERIFY IF SHE CAN TOLERATE. WILL CLOSELY MONITOR AND PERFORM ABG
[2018-11-21] MEDS: POTASSIUM CL. PREMIX PERIPHER. 50 ML IV SCH ×2 (14:26→15:49)
[2018-11-21] MEDS: CLONIDINE HCL 0.1 MG TABLET PO SCH (17:00)
[2018-11-21] MEDS: CALCIUM CARBONATE (1250) 500 MG TABLET PO SCH (17:00)
[2018-11-21] MEDS: LACTOBACILLUS RHAMNOSUS GG 1 EACH CAP.SPRINK PO SCH (17:00)
[2018-11-21] MEDS ORDERED: DEXTROSE 50%-WATER 50 ML DISP.SYRIN IV PRN (17:30)
[2018-11-21] MEDS ORDERED: INSULIN REGULAR, HUMAN 100 UNIT/ML 3 ML VIAL SQ PRN (17:30)
[2018-11-21] MEDS ORDERED: ATORVASTATIN 10 MG TABLET PO SCH (18:00)
[2018-11-21] MEDS: BLOOD SUGAR DIAGNOSTIC 1 EACH STRIP IN SCH ×2 (18:08→22:00)
[2018-11-21] MEDS ORDERED: IV NS 0.9% 250 ML IV ONE (19:00)
[2018-11-22] VITALS (28 sets, daily range): BP systolic 51–184; BP diastolic 38–111
[2018-11-22] MEDS ORDERED: METOPROLOL TARTRATE INJ 5 MG/5 ML AMPUL IVP PRN
--- NOTE | 2018-11-22 | NUR ---
ROOF ASSEMBLER NOTE FAMILY AT BEDSIDE. SBP ELEVATED FROM 150'S TO 170. SPOKE WITH UNION STEWARD WITH ORDERS FOR METOPROLOL 5MG IVP Q6H PRN FOR SBP >150. ORDERS NOTED AND CARRIED OUT.
--- NOTE | 2018-11-22 02:00 | NUR ---
SALES PROJECT COORDINATOR NOTE DAUGHTER AND GRANDDAUGHTER AT BEDSIDE AND NOTIFIED RN AND CHARGE NURSE THAT FAMILY WISHES TO PUT PT DNR/DNI. NOTIFIED AND ORDERS NOTED AND CARRIED OUT.
[2018-11-22 04:43] LABS: BASOPHILS % (AUTO) 0.1 % (0.0-2.0); HEMATOCRIT 34 % (33-45); HEMOGLOBIN 11.7 g/dL (11.5-14.8); LYMPHOCYTES # (AUTO) 1.6 /CMM (0.8-4.8); LYMPHOCYTES % (AUTO) 18.8 % (20.0-44.0); MEAN CORPUSCULAR HGB CONC 35 g/dl (31.0-36.0); MEAN CORPUSCULAR VOLUME 91 fL (82-100); MONOCYTES % (AUTO) 11.1 % (2.0-12.0); NEUTROPHILS # (AUTO) 6.1 /CMM (1.8-8.9); PLATELET COUNT (AUTO) 262 /CMM (150-450); RED BLOOD CELL COUNT(AUTO) 3.71 MIL/uL (4.0-5.2); WHITE BLOOD COUNT (AUTO) 8.7 K/uL (4.3-11.0)
[2018-11-22 04:54] LABS: ALANINE AMINOTRANSFERASE 17 U/L (12-78); ALBUMIN 2.4 g/dL (3.4-5.0); ALKALINE PHOSPHATASE 62 U/L (46-116); ASPARTATE AMINOTRANSFERASE 20 U/L (15-37); BILIRUBIN,TOTAL 0.5 mg/dL (0.2-1.0); CALCIUM, SERUM 8.3 mg/dL (8.5-10.1); CARBON DIOXIDE 27 mmol/L (21-32); CHLORIDE 97 mmol/L (98-107); CREATININE 0.7 mg/dL (0.6-1.3); GLUCOSE 78 mg/dL (74-106); MAGNESIUM 1.7 mg/dL (1.8-2.4); PHOSPHORUS 2.6 mg/dL (2.5-4.9); POTASSIUM 3.8 mmol/L (3.5-5.1); SODIUM SERUM 131 mmol/L (136-145); TOTAL PROTEIN, SERUM 5.4 g/dL (6.4-8.2); UREA NITROGEN, BLOOD 16 mg/dL (7-18)
[2018-11-22 05:02] LABS: THYROID STIMULATING HORMONE 1.695 uIU/mL (0.358-3.74)
--- NOTE | 2018-11-22 07:30 | NUR ---
BROOKS RN NOTE: RECEIVED PATIENT IN ROOM ASLEEP AND WAS NOTED ALERT TO HER NAME WITH INTERMITTENT CONFUSION. ON BIPAP 15/5 AND PATIENT WAS SATURATING 100%. RESPIRATION EVEN AND UNLABORED. NO FACIAL GRIMACING NOTED. HOB ELEVATED AT 35 DEGREE. (R) UA PICC LINE WITH 3 PORTS NOTED PATENT AND INTACT. ON PROP CUTTER SR WITH BBB HR= 84. AFEBRILE. SKIN WARM TO TOUCH. CALL LIGHT WITHIN REACH. NEEDS ANTICIPATED.
--- NOTE | 2018-11-22 07:54 | NUR ---
SPRING UPHOLSTERER NOTE PT REMAINED STABLE DURING SHIFT. NO ACUTE DISTRESS NOTED. BIPAP SETTINGS WELL TOLERATED AND SATURATING WELL. ALL NEEDS ATTENDED TO PROMPTLY. KEPT CLEAN AND DRY. REPOSITIONED Q2H. HOB ELEVATED. NPO STATUS MAINTAINED. WILL ENDORSE TO NEXT SHIFT FOR CONTINUITY OF CARE.
[2018-11-22] MEDS: BLOOD SUGAR DIAGNOSTIC 1 EACH STRIP IN SCH (08:04)
[2018-11-22] MEDS: CEFTRIAXONE 1 G in IV D5W 50 ML IV SCH (08:09)
--- NOTE | 2018-11-22 08:30 | NUR ---
BROOKS RN NOTE: DR. ROD CAME BY AND ORDERED TO REMOVE THE PATIENT FROM BIPAP AND CHECK ABG 1 HOUR AFTER THE REMOVAL OF BIPAP. THE PATIENT'S GRANDDAUGHTER WAS PRESENT AT THE BEDSIDE. RT REMOVED THE BIPAP ON THE PATIENT AND PLACED HER ON O2 4L/MIN VIA NC TO PROVIDE OXYGEN SUPPORT.
[2018-11-22] MEDS ORDERED: ASPIRIN EC 81 MG TABLET.DR PO SCH (09:00)
[2018-11-22] MEDS: LACTOBACILLUS RHAMNOSUS GG 1 EACH CAP.SPRINK PO SCH (09:00)
[2018-11-22] MEDS ORDERED: ATENOLOL 50 MG TABLET PO SCH (09:00)
[2018-11-22] MEDS ORDERED: ESCITALOPRAM OXALATE (10 MG) 10 MG TABLET PO SCH (09:00)
[2018-11-22] MEDS: CLONIDINE HCL 0.1 MG TABLET PO SCH (09:00)
[2018-11-22] MEDS: CALCIUM CARBONATE (1250) 500 MG TABLET PO SCH (09:00)
--- NOTE | 2018-11-22 09:30 | NUR ---
BROOKS RN NOTE: THE ABG WAS DRAWN AND RESULT WAS RECEIVED AND WAS REPORTED TO DR. ROD. PER DR. ROD, PATIENT CAN KEEP THE O2 4L/MIN VIA NC FOR OXYGEN SUPPORT. FAMILY AWARE AND REMAINED AT THE BEDSIDE.
[2018-11-22 09:43] LABS: ABG BASE EXCESS -3.8 mmol/L; ABG OXYGEN SATURATION 95.4 % (92.0-98.5); ABG PCO2 38.8 mmHg (35.0-45.0); ABG PH 7.357 (7.350-7.450); ABG PO2 82.7 mmHg (75.0-100.0); COHb 0.9 % (0.5-1.5); MetHb 0.4 % (0.0-1.5); O2Hb 94.2 % (94.0-97.0); SITE, ABG Right Radial; VENT MODE, BG NASAL CANNULA
[2018-11-22] MEDS: Magnesium 1GM/D5W 100ML PREMIX 100 ML IV SCH ×2 (10:22→11:34)
[2018-11-22] MEDS: AZITHROMYCIN 500 MG in IV D5W 250 ML IV SCH (10:47)
[2018-11-22] MEDS ORDERED: IV NS 0.9% 250 ML IV ONE (11:30)
[2018-11-22] MEDS ORDERED: IV D5/ 0.9% NACL 1,000 ML IV PRN (11:30)
[2018-11-22] MEDS ORDERED: IV NS 0.9% 1,000 ML BAG IV PRN (11:30)
--- NOTE | 2018-11-22 11:33 | NUR ---
BROOKS RN NOTE: CLARIFIED WITH DR. LIMA RE: THE IVF ORDER. PER KATYA MOSER THE IV BOLUS AND D5NS, ORDER NOTED AND CARRIED OUT. FAMILY PRESENT AT THE BEDSIDE AND MADE AWARE.
[2018-11-22] MEDS ORDERED: MORPHINE SULFATE INJ 2 MG/ML DISP.SYRIN IV STA (11:43)
--- NOTE | 2018-11-22 11:45 | NUR ---
BROOKS RN NOTE: PATIENT WAS NOTED RESTLESS AND FAMILY WAS PRESENT AT THE BEDSIDE. DR. LIMA REMAINED PRESENT IN THE UNIT AND PATIENT'S GRANDDAUGHTER SAID THAT THEY DO NOT WANT THE PATIENT TO BE PLACED ON THE BIPAP AGAIN. OFFERED THE OXYGEN VIA NONREBREATHER MASK FOR OXYGENATION SUPPORT, BUT SHE SAID "NO." PATIENT WAS VERY UNEASY IN THE BED. ELEVATED THE PATIENT'S HOB AT 70 DEGREE, BUT FAMILY SAID TO STOP TOUCHING THE PATIENT. DR. LIMA WAS MADE AWARE. CALLED AND REQUESTED FOR AN ROMANSH SPEAKING NURSE IN ORDER TO EXPLAIN FURTHER TO THE FAMILY ABOUT THE PATIENT'S CONDITION AND IN ORDER TO PROVIDE BETTER CARE FOR THE PATIENT.
--- NOTE | 2018-11-22 11:47 | NUR ---
BROOKS RN NOTE: PATIENT'S FAMILY PRESENT AT THE BEDSIDE. REFUSED BIPAP, NONREBREATHER MASK AND REFUSED BLOOD DRAW FOR LACTIC ACID. DR. LIMA PRESENT AT THE BEDSIDE. AWARE OF THE PATIENT CONDITION AT THIS TIME.
--- NOTE | 2018-11-22 11:49 | NUR ---
RT PT IS HYPOXIC WITH POOR RESPIRATORY EFFORT. PT FAMILY BY BEDSIDE AND IS REFUSING TO PLACE PT ON BiPAP. PT FAMILY ALSO DOES NOT WANT PT TO BE PLACED ON NON REBREATHER DESPITE EDUCATED FAMILY ON PT CONDITION. PT FAMILY UNDERSTANDS AND REQUEST FOR PT TO BE ON COMFORT MEASURES. RN AND CHARGE NURSE IS AWARE.
[2018-11-22] MEDS ORDERED: HYDROMORPHONE INJ 2 MG/ML DISP.SYRIN IV ONE (12:00)
[2018-11-22] MEDS ORDERED: IV NS 0.9% 1,000 ML IV PRN (12:00)
--- NOTE | 2018-11-22 12:10 | NUR ---
BROOKS RN NOTE: THE PATIENT WAS NOTED WITH NO VIABLE VITAL SIGN, (B) PUPILS NOTED DILATED AND FIXATED. NO BREATHING NOTED. NO PULSE NOTED. PATIENT'S GRANDDAUGHTER AND SISTER PRESENT AT THE BEDSIDE. EDUARDO CARDOZA PRESENT AT THE BEDSIDE AND PRONOUNCED THE PATIENT'S TIME OF .
--- NOTE | 2018-11-22 12:10 | NUR ---
PATIENT NOTED ASYSTOLE ON MONITOR. PATIENT WITHOUT SPONTANEOUS RESPIRATION/BREATHING. NO PALPABLE PULSES NOTED. NO HEART TONE AUSCULATATED. NO BP. PRONOUNCED . FAMILY AT BEDSIDE AT THIS TIME.
--- NOTE | 2018-11-22 12:45 | NUR ---
BROOSK RN NOTE: CALLED AND SPOKE WITH FRANCINE, [facility] NURSE REGARDING THE PATIENT'S . CASE #: [id number] AND PER FRANCINE, SHE VERBALIZED THAT [facility] WILL NOT FOLLOW ON THE CASE. THEY WERE OK TO RELEASE THE BODY OF THE PATIENT TO THE FAMILY'S CHOICE OF MORTUARY. CHARGE NURSE NANI MADE AWARE.
--- NOTE | 2018-11-22 13:00 | NUR ---
BROOKS RN NOTE: POST MORTEM CARE WAS DONE. AND PATIENT'S FAMILY WAS GIVEN PRIVACY WITH THE PATIENT.
--- NOTE | 2018-11-22 14:00 | NUR ---
BROOKS RN NOTE: KRISHNA COOK LAURIE WAS CALLED OVER THE PHONE AND VERIFIED WITH HIM THAT THE PATIENT'S BODY NEED TO BE TRANSFER TO THE [facility] IF THE MORTUARY WAS NOT YET ARRANGED. KRISHNA GAVE A VERBAL CONSENT OVER THE TELEPHONE AND WAS VERIFIED WITH GENESIS CARDOZA THAT IT'S OK TO KEEP THE PATIENT'S BODY TO THE [facility] AND THEIR MORTUARY OF CHOICE WILL PICK-UP THE PATIENT'S BODY AFTERWARDS. SAHIL, BROACHING MACHINE OPERATOR WAS MADE AWARE.
--- NOTE | 2018-11-22 14:30 | NUR ---
BROOKS RN NOTE: PATIENT WAS TRANSPORTED TO THE [facility] WITH 2 SECURITY GUARDS ACCOMPANIED BY 2 RN WITH THE PATIENT'S CHART AND 1 BLANKET WAS LABELED AND RELEASED BACK TO THE NURSING STAFF SOFTWARE ENGINEER.
== END 2018-11-22 14:48 | disposition expired | DRG 193 ==
LOC: ER 23:02 → TELE1 11-21 08:22 → ICU 11-21 09:49
PROVIDERS: ADMIT Internal Medicine; ATTEND Internal Medicine
PROC: 5A09457 Assistance with Respiratory Ventilation, 24-96 Consecutive Hours, Continuous Positive Airway Pressure (ICD-10-PCS; principal; 2018-11-21)
PROC: 02HV33Z Insertion of Infusion Device into Superior Vena Cava, Percutaneous Approach (ICD-10-PCS; 2018-11-21)
PROC: B548ZZA Ultrasonography of Superior Vena Cava, Guidance (ICD-10-PCS; 2018-11-21)
DX: J15.9 Unspecified bacterial pneumonia (principal); G93.41 Metabolic encephalopathy; J96.02 Acute respiratory failure with hypercapnia; E87.1 Hypo-osmolality and hyponatremia; E44.1 Mild protein-calorie malnutrition; I11.0 Hypertensive heart disease with heart failure; I50.9 Heart failure, unspecified; E11.9 Type 2 diabetes mellitus without complications; F03.90 Unspecified dementia, unspecified severity, without behavioral disturbance, psychotic disturbance, mood disturbance, and anxiety; Z86.73 Personal history of transient ischemic attack (TIA), and cerebral infarction without residual deficits; F32.9 Major depressive disorder, single episode, unspecified; E78.5 Hyperlipidemia, unspecified; F41.0 Panic disorder [episodic paroxysmal anxiety]; F43.10 Post-traumatic stress disorder, unspecified; E78.00 Pure hypercholesterolemia, unspecified; I25.10 Atherosclerotic heart disease of native coronary artery without angina pectoris; I27.20 Pulmonary hypertension, unspecified; K21.9 Gastro-esophageal reflux disease without esophagitis; M81.0 Age-related osteoporosis without current pathological fracture; Z79.84 Long term (current) use of oral hypoglycemic drugs; Z79.899 Other long term (current) drug therapy; Z82.49 Family history of ischemic heart disease and other diseases of the circulatory system; Z90.49 Acquired absence of other specified parts of digestive tract; Z90.710 Acquired absence of both cervix and uterus
CPT/HCPCS: 36415; 36600; 70450-TC; 71045-TC; 80048-TC; 80053-TC; 80076-TC; 81000-TC; 82533; 82803-TC; 82962-TC; 83605-TC; 83690-TC; 83735-TC; 83935-TC; 84100-TC; 84300-TC; 84443-TC; 84484-TC; 84550-TC; 85025-TC; 85730-TC; 87040-TC; 87081-TC; 87086-TC; 87186-TC; C1751; G0378; J0456; J0696; J1170; J1815; J2274; J2310; J2405; J3475; J3480; J3490; J7030; J7050; J7060